=== PATIENT | female | born 1945 | race Caucasian/White ===

== ENCOUNTER 2017-06-24 18:26 | Emergency (ER) | payer BC, MEDICARE ==
[2017-06-24] MEDS: HYDROcodone/APAP 5/325MG 1 TAB TABLET PO (18:54)
== END 2017-06-24 20:12 | disposition home or self-care (01) ==
LOC: ER 18:26
DX: S52.531A Colles' fracture of right radius, initial encounter for closed fracture (principal); W01.0XXA Fall on same level from slipping, tripping and stumbling without subsequent striking against object, initial encounter; S52.532A Colles' fracture of left radius, initial encounter for closed fracture; Y93.89 Activity, other specified; Y99.8 Other external cause status; Y92.89 Other specified places as the place of occurrence of the external cause
CPT/HCPCS: 29125; 73110; 99284-25